=== PATIENT | male | born 2005 | race Caucasian/White ===

== ENCOUNTER 2024-02-17 22:43 | Emergency (ER) | payer SELFPAY ==
[~2024-02-17] VITALS: Ht 185.4 cm; Wt 60.0 kg
[2024-02-17 22:54] VITALS: BP 123/78; PULSE 87; RESP 12; TEMP 98.7; O2SAT 97
[2024-02-17] MEDS ORDERED: ONDANSETRON HCL 4MG/2ML INJ IV ONE (23:00)
[2024-02-17 23:09] LABS: BASOPHILS % 0.1 % (0.0-2.0); EOSINOPHILS % 0.4 % (0.0-5.0); HEMATOCRIT. 43.3 % (42.0-52.0); HEMOGLOBIN. 14.4 g/dL (14.0-18.0); LYMPHOCYTES % 7.7 % (20.0-50.0); MEAN CORPUSCULAR HEMOGLOBIN 26.9 pg (28.0-32.0); MEAN CORPUSCULAR HGB CONC 33.2 g/dL (31.0-37.0); MEAN PLATELET VOLUME 8.3 fl (7.4-10.4); NEUTROPHILS % 87.8 % (40.0-76.0); PLATELET 233 x1000/uL (130-400); RED BLOOD CELL COUNT 5.34 mill/uL (4.7-6.1); RED CELL DISTRIBUTION WIDTH 14.3 % (11.6-14.6); WHITE BLOOD COUNT 13.5 x1000/uL (4.5-11.0)
[2024-02-17 23:12] LABS: CHLORIDE 106 mEq/L (98-107); POTASSIUM 3.6 mEq/L (3.5-5.1); SODIUM 140 mEq/L (136-145)
[2024-02-17 23:13] LABS: CARBON DIOXIDE 24 mEq/L (21-32)
[2024-02-17 23:18] LABS: CREATININE 0.8 mg/dL (0.6-1.3); GLUCOSE 127 mg/dL (70-105); UREA NITROGEN BLOOD 14 mg/dL (9-23)
[2024-02-17 23:19] LABS: ETHANOL BLOOD 176 mg/dL (<10)
== END 2024-02-18 01:31 | disposition home or self-care (01) ==
LOC: ER 22:43
DX: F10.129 Alcohol abuse with intoxication, unspecified (principal); G93.40 Encephalopathy, unspecified; Y90.6 Blood alcohol level of 120-199 mg/100 ml
CPT/HCPCS: 36415; 80048; 80320; 85025; 99283; G0480